=== PATIENT | female | born 1995 | race Caucasian/White ===

== ENCOUNTER 2021-03-18 17:12 | Emergency (ER) | payer OTHER ==
[~2021-03-18 17:12] MED LIST: AMOXICILLIN500 MG PO; TAMIFLU75 MG PO
[2021-03-18 18:53] LABS: HEMOGLOBIN 13.1 gm/dl (12.3-15.3); RED BLOOD COUNT 4.65 M/UL (4.00-5.10); WHITE BLOOD COUNT 8.7 K/UL (4.5-11.0)
[2021-03-18 19:12] LABS: BUN/CREATININE RATIO 13 (0-10)
== END 2021-03-18 21:58 | disposition home or self-care (01) ==
LOC: ER1 17:12
PROVIDERS: Physician Assistant Medical
DX: N83.202 Unspecified ovarian cyst, left side (principal)
CPT/HCPCS: 80053; 81001; 83690; 84703; 85025; 96374; 96375; 99284; J1885; J2405; Q9967